=== PATIENT | female | born 1995 | race African-American/Black ===

== ENCOUNTER 2019-09-27 15:37 | Emergency (ER) | payer OTHER ==
[~2019-09-27] VITALS: Ht 165.1 cm; Wt 81.6 kg
[2019-09-27 15:55] VITALS: BP 127/66
--- NOTE | 2019-09-27 15:57 | NUR ---
TO LOBBY A/W BED AMBULATORY
--- NOTE | 2019-09-27 16:19 | NUR ---
PT AMBULATED TO ER BED 11
--- NOTE | 2019-09-27 16:35 | NUR ---
C/O SORE UNDER TOUNGE X 1 DAY. PT STATES SHE WAS BRUSHING HER TEETH AND SHE NOTICED "SWELLING OR A SORE" UNDER HER TOUNGE. PT ALSO COMPLAINS OF DRY MOUTH WELL. PT IS ASLEEP IN THE BED AND WAS AROUSABLE TO PHYSICAL STIMULI. PT SMELLS OF MARIJUANA AT THIS TIME. BED IN LOW POSITION, SIDE RAIL UP X1.
--- NOTE | 2019-09-27 18:00 | NUR ---
DR THOMSON AT BEDSIDE EVALUATING PT
[2019-09-27 18:30] VITALS: BP 127/66
--- NOTE | 2019-09-27 18:31 | NUR ---
Patient discharged with v/s stable. Written and verbal after care instructions given and explained. Patient alert, oriented and verbalized understanding of instructions. Ambulatory with steady gait. All questions addressed prior to discharge. ID band removed. Patient advised to follow up with PMD.
== END 2019-09-27 18:31 | disposition home or self-care (01) ==
LOC: MED 15:37
DX: K05.10 Chronic gingivitis, plaque induced (principal)
CPT/HCPCS: 99283

== ENCOUNTER 2020-09-19 18:39 | Emergency (ER) | payer OTHER ==
[~2020-09-19] VITALS: Ht 165.1 cm; Wt 89.8 kg
[2020-09-19 19:01] VITALS: BP 125/64
--- NOTE | 2020-09-19 22:12 | NUR ---
PT TAKEN TO BED #12
--- NOTE | 2020-09-19 22:13 | NUR ---
Dr. Jimenez examining patient.
[2020-09-19 22:15] VITALS: BP 125/62
--- NOTE | 2020-09-19 22:30 | NUR ---
URINE SPECIMEN GIVEN TO LAB.
[2020-09-19] MEDS ORDERED: cefTRIAXone 250 MG in LIDOCAINE MPF 1% 0.9 ML IM ONE (22:40)
[2020-09-19 22:49] LABS: APPEARANCE,URINE CLEAR (CLEAR); BILIRUBIN,URINE NEGATIVE (NEGATIVE); BLOOD, URINE NEGATIVE (NEGATIVE); COLOR,URINE YELLOW (YELLOW); LEUKOCYTE ESTERASE ,URINE NEGATIVE (NEGATIVE); NITRITE, URINE NEGATIVE (NEGATIVE); PH,URINE 5.5 (5.0-9.0); UGLUCOSE NEGATIVE (NEGATIVE)
--- NOTE | 2020-09-19 22:49 | NUR ---
Female Steel Burner accompanied female patient for Pelvic Exam.
--- NOTE | 2020-09-19 22:53 | NUR ---
[place] SPECIMEN COLLECTED AND GIVEN TO LAB
[2020-09-19] MEDS ORDERED: LIDOCAINE MPF 1% 5 ML ONE (22:55)
[2020-09-19] MEDS ORDERED: cefTRIAXone 250 MG VIAL ONE (22:55)
--- NOTE | 2020-09-19 22:59 | NUR ---
PT MEDICATED PER ERMD ORDER. PT SENT TO LOBBY TO A/W PENDING RESULTS.
== END 2020-09-19 23:30 | disposition home or self-care (01) ==
LOC: MED 18:39
DX: R30.9 Painful micturition, unspecified (principal)
CPT/HCPCS: 36415; 81003; 81025; 87210; 96372; 99283; J0696; J2001; 87491